=== PATIENT | male | born 1985 | race Two or more races ===

== ENCOUNTER 2018-10-22 16:36 | Inpatient (IN) | payer SELFPAY ==
[~2018-10-22] VITALS: Ht 175.3 cm; Wt 72.1 kg
--- NOTE | 2018-10-22 16:58 | PHYS DOC ---
Adult General Chief Complaint Chief Complaint: ABDOMINAL PAIN HPI HPI Patient is a 33 year old [male] who presents with [upper abdominal pain. Patient reports he has a history of pancreatitis, last episode was approximately one year ago. Reports he had changed his lifestyle following that decreased his alcohol and does watch his dietary intake. Reports over the past couple days he has eaten more spicy foods. Does report he's had a few alcoholic beverages over the past couple days. He has drank 3 non-alcoholic beer today. Approximately 1 hour prior to coming in he had increase in abdominal discomfort. Denies any n ausea or vomiting at this time. Reports bowel movements have been normal. Denies constipation or diarrhea. Reports he has not taken any medication for this. ] (JOSE L GARCIA APRN) Review of Systems Review of Systems Constitutional: Denies fever or chills [] Eyes: Denies change in visual acuity, redness, or eye pain [] HENT: Denies nasal congestion or sore throat [] Respiratory: Denies cough or shortness of breath [] Cardiovascular: No additional information not addressed in HPI [] GI: Reports upper left and epigastric abdominal pain, denies nausea, vomiting, bloody stools or diarrhea [] : Denies dysuria or hematuria [] Musculoskeletal: Denies back pain or joint pain [] Integument: Denies rash or skin lesions [] Neurologic: Denies headache, focal weakness or sensory changes [] Endocrine: Denies polyuria or polydipsia [] All other systems were reviewed and found to be within normal limits, except as documented in this note. (JOSE L GARCIA APRN) Current Medications Current Medications Current Medications Medications (Trade) Dose Ordered Sig/Avery Start Time Stop Time Status Last Admin Dose Admin Morphine Sulfate (Morphine Sulfate) 4 mg PRN Q30MIN PRN 10/22/18 18:30 10/22/18 18:50 DC Multi-Ingredient Mouthwash/Gargle (Gi Cocktail) 20 ml 1X ONCE 10/22/18 17:45 10/22/18 17:46 DC 10/22/18 17:36 20 ML Ondansetron HCl (Zofran) 4 mg 1X ONCE 10/22/18 17:15 10/22/18 17:16 DC 10/22/18 17:03 4 MG Sodium Chloride 1,000 ml @ 1,000 mls/hr 1X ONCE 10/22/18 17:00 10/22/18 17:59 DC 10/22/18 17:02 1,000 MLS/HR (NANDA PINEDA DO) Allergies Allergies Allergies Coded Allergies Type Severity Reaction Last Updated Verified Penicillins Allergy Intermediate 10/22/18 Yes (NANDA PINEDA DO) Physical Exam Physical Exam Constitutional: Well developed, well nourished, no acute distress, non-toxic appearance. [] HENT: Normocephalic, atraumatic, bilateral external ears normal, oropharynx moist, no oral exudates, nose normal. [] Eyes: PERRLA, EOMI, conjunctiva normal, no discharge. [] Neck: Normal range of motion, no tenderness, supple, no stridor. [] Cardiovascular:Heart rate regular rhythm, no murmur [] Lungs & Thorax: Bilateral breath sounds clear to auscultation [] Abdomen: Bowel sounds normal, soft, mild tenderness widespread upper abdominal., no masses, no pulsatile masses. [] Skin: Warm, dry, no erythema, no rash. [] Back: No tenderness, no CVA tenderness. [] Extremities: No tenderness, no cyanosis, no clubbing, ROM intact, no edema. [] Neurologic: Alert and oriented X 3, normal motor function, normal sensory function, no focal deficits noted. [] Psychologic: Affect normal, judgement normal, mood normal. [] (JOSE L GARCIA APRN) Current Patient Data Vital Signs Vital Signs Date Time Temp Pulse Resp B/P (MAP) Pulse Ox O2 Delivery O2 Flow Rate FiO2 10/22/18 18:14 86 154/99 (117) 98 Room Air 10/22/18 17:33 22 10/22/18 16:40 99.3 99.3 (NANDA PINEDA DO) Lab Values Laboratory Tests Test 10/22/18 16:45 10/22/18 17:15 White Blood Count 9.9 x10^3/uL (4.0-11.0) Red Blood Count 4.72 x10^6/uL (4.30-5.70) Hemoglobin 14.7 g/dL (13.0-17.5) Hematocrit 42.8 % (39.0-53.0) Mean Corpuscular Volume 91 fL (79-100) Mean Corpuscular Hemoglobin 31 pg (25-35) Mean Corpuscular Hemoglobin Concent 34 g/dL (31-37) Red Cell Distribution Width 16.1 % (11.5-14.5) H Platelet Count 292 x10^3/uL (140-400) Neutrophils (%) (Auto) 40 % (31-73) Lymphocytes (%) (Auto) 42 % (24-48) Monocytes (%) (Auto) 16 % (0-9) H Eosinophils (%) (Auto) 1 % (0-3) Basophils (%) (Auto) 1 % (0-3) Neutrophils # (Auto) 3.9 x10^3uL (1.8-7.7) Lymphocytes # (Auto) 4.2 x10^3/uL (1.0-4.8) Monocytes # (Auto) 1.6 x10^3/uL (0.0-1.1) H Eosinophils # (Auto) 0.1 x10^3/uL (0.0-0.7) Basophils # (Auto) 0.0 x10^3/uL (0.0-0.2) Sodium Level 142 mmol/L (136-145) Potassium Level 3.2 mmol/L (3.5-5.1) L Chloride Level 104 mmol/L (98-107) Carbon Dioxide Level 24 mmol/L (21-32) Anion Gap 14 (6-14) Blood Urea Nitrogen 14 mg/dL (8-26) Creatinine 1.2 mg/dL (0.7-1.3) Estimated GFR (Cockcroft-Gault) 68.9 BUN/Creatinine Ratio 12 (6-20) Glucose Level 124 mg/dL (70-99) H Lactic Acid Level 2.0 mmol/L (0.4-2.0) Calcium Level 9.8 mg/dL (8.5-10.1) Total Bilirubin 1.2 mg/dL (0.2-1.0) H Aspartate Amino Transferase (AST) 31 U/L (15-37) Alanine Aminotransferase (ALT) 49 U/L (16-63) Alkaline Phosphatase 56 U/L (46-116) Troponin I Quantitative < 0.017 ng/mL (0.000-0.055) Total Protein 8.3 g/dL (6.4-8.2) H Albumin 4.8 g/dL (3.4-5.0) Albumin/Globulin Ratio 1.4 (1.0-1.7) Amylase Level 3888 U/L (25-115) H Lipase 59951 U/L (73-393) H Ethyl Alcohol Level < 10 mg/dL (0-10) Urine Collection Type Unknown Urine Color Yellow Urine Clarity Cloudy Urine pH 5.5 Urine Specific [place] 1.015 Urine Protein Negative mg/dL (NEG-TRACE) Urine Glucose (UA) Negative mg/dL (NEG) Urine Ketones (Stick) Negative mg/dL (NEG) Urine Blood Negative (NEG) Urine Nitrite Negative (NEG) Urine Bilirubin Negative (NEG) Urine Urobilinogen Dipstick 0.2 mg/dL (0.2 mg/dL) Urine Leukocyte Esterase Trace (NEG) Urine RBC 0 /HPF (0-2) Urine WBC 5-10 /HPF (0-4) Urine Squamous Epithelial Cells Mod /LPF Urine Bacteria 0 /HPF (0-FEW) Urine Mucus Mod /LPF Laboratory Tests 10/22/18 16:45 Laboratory Tests 10/22/18 16:45 (NANDA PINEDA DO) Lab Values Laboratory Tests Test 10/22/18 16:45 10/22/18 17:15 White Blood Count 9.9 x10^3/uL (4.0-11.0) Red Blood Count 4.72 x10^6/uL (4.30-5.70) Hemoglobin 14.7 g/dL (13.0-17.5) Hematocrit 42.8 % (39.0-53.0) Mean Corpuscular Volume 91 fL (79-100) Mean Corpuscular Hemoglobin 31 pg (25-35) Mean Corpuscular Hemoglobin Concent 34 g/dL (31-37) Red Cell Distribution Width 16.1 % (11.5-14.5) H Platelet Count 292 x10^3/uL (140-400) Neutrophils (%) (Auto) 40 % (31-73) Lymphocytes (%) (Auto) 42 % (24-48) Monocytes (%) (Auto) 16 % (0-9) H Eosinophils (%) (Auto) 1 % (0-3) Basophils (%) (Auto) 1 % (0-3) Neutrophils # (Auto) 3.9 x10^3uL (1.8-7.7) Lymphocytes # (Auto) 4.2 x10^3/uL (1.0-4.8) Monocytes # (Auto) 1.6 x10^3/uL (0.0-1.1) H Eosinophils # (Auto) 0.1 x10^3/uL (0.0-0.7) Basophils # (Auto) 0.0 x10^3/uL (0.0-0.2) Sodium Level 142 mmol/L (136-145) Potassium Level 3.2 mmol/L (3.5-5.1) L Chloride Level 104 mmol/L (98-107) Carbon Dioxide Level 24 mmol/L (21-32) Anion Gap 14 (6-14) Blood Urea Nitrogen 14 mg/dL (8-26) Creatinine 1.2 mg/dL (0.7-1.3) Estimated GFR (Cockcroft-Gault) 68.9 BUN/Creatinine Ratio 12 (6-20) Glucose Level 124 mg/dL (70-99) H Lactic Acid Level 2.0 mmol/L (0.4-2.0) Calcium Level 9.8 mg/dL (8.5-10.1) Total Bilirubin 1.2 mg/dL (0.2-1.0) H Aspartate Amino Transferase (AST) 31 U/L (15-37) Alanine Aminotransferase (ALT) 49 U/L (16-63) Alkaline Phosphatase 56 U/L (46-116) Troponin I Quantitative < 0.017 ng/mL (0.000-0.055) Total Protein 8.3 g/dL (6.4-8.2) H Albumin 4.8 g/dL (3.4-5.0) Albumin/Globulin Ratio 1.4 (1.0-1.7) Amylase Level 3888 U/L (25-115) H Lipase 70032 U/L (73-393) H Ethyl Alcohol Level < 10 mg/dL (0-10) Urine Collection Type Unknown Urine Color Yellow Urine Clarity Cloudy Urine pH 5.5 Urine Specific [place] 1.015 Urine Protein Negative mg/dL (NEG-TRACE) Urine Glucose (UA) Negative mg/dL (NEG) Urine Ketones (Stick) Negative mg/dL (NEG) Urine Blood Negative (NEG) Urine Nitrite Negative (NEG) Urine Bilirubin Negative (NEG) Urine Urobilinogen Dipstick 0.2 mg/dL (0.2 mg/dL) Urine Leukocyte Esterase Trace (NEG) Urine RBC 0 /HPF (0-2) Urine WBC 5-10 /HPF (0-4) Urine Squamous Epithelial Cells Mod /LPF Urine Bacteria 0 /HPF (0-FEW) Urine Mucus Mod /LPF Laboratory Tests 10/22/18 16:45 Laboratory Tests 10/22/18 16:45 (JOSE L GARCIA APRN) EKG EKG @1652, Dr Friend evaluates. normal sinus rhythm without ST changes or ectopy noted. HR 67. [] (JOSE L GARCIA APRN) Radiology/Procedures Radiology/Procedures [] (JOSE L GARCIA APRN) Course & Med Decision Making Course & Med Decision Making Pertinent Labs and Imaging studies reviewed. (See chart for details) [Discussed pain control and left findings with patient. Patient reports he continues to have some discomfort. We'll admit, additional morphine here at this time and potassium for symptoms for k+ 3.2. Discussed admission with the patient, patient reports he would like that for pain control and follow up. @[address] Byers, Agrees to admission inpatient for acute pancreatitis. ] (JOSE L GARCIA APRN) Dragon Disclaimer Dragon Disclaimer This electronic medical record was generated, in whole or in part, using a voice recognition dictation system. (JOSE L GARCIA APRN) Departure Departure Impression: Primary Impression: Pancreatitis Additional Impression: Hypokalemia Disposition: ADMITTED INPATIENT Admitting Physician: Other (JOSE L GARCIA APRN) Condition: STABLE Referrals: NO PCP (PCP) Attending Signature Attending Signature I have reviewed the PA/NEWS PRODUCER's note and plan of care. I was available for consultation as needed during the patient's visit in the emergency department. I agree with the clinical impression, plan, and disposition. (NANDA PINEDA DO) Problem Qualifiers JOSE L GARCIA APRN October 22, 2018 16:58 NANDA PINEDA DO October 23, 2018 03:17
[2018-10-22] MEDS ORDERED: IV NORMAL SALINE 1000ML BAG 1,000 ML IV ONE ×2 (17:00→19:00)
[2018-10-22 17:02] LABS: BASO % 1 % (0-3); EOS # 0.1 x10^3/uL (0.0-0.7); EOS % 1 % (0-3); HEMATOCRIT 42.8 % (39.0-53.0); HEMOGLOBIN 14.7 g/dL (13.0-17.5); LYMPH # 4.2 x10^3/uL (1.0-4.8); LYMPH % 42 % (24-48); MEAN CORPUSCULAR HEMOGLOBIN 31 pg (25-35); MEAN CORPUSCULAR HGB CONC 34 g/dL (31-37); MEAN CORPUSCULAR VOLUME 91 fL (79-100); MONO # 1.6 x10^3/uL (0.0-1.1); MONO % 16 % (0-9); NEUT # 3.9 x10^3uL (1.8-7.7); NEUT % 40 % (31-73); PLATELET COUNT 292 x10^3/uL (140-400); RED BLOOD COUNT 4.72 x10^6/uL (4.30-5.70); RED CELL DISTRIBUTION WIDTH 16.1 % (11.5-14.5); WHITE BLOOD COUNT 9.9 x10^3/uL (4.0-11.0)
[2018-10-22 17:10] LABS: CALCIUM 9.8 mg/dL (8.5-10.1); CREATININE 1.2 mg/dL (0.7-1.3); GFR 68.9; POTASSIUM 3.2 mmol/L (3.5-5.1)
[2018-10-22] MEDS ORDERED: ONDANSETRON PF 4 MG/2 ML VIAL. IV ONE (17:15)
[2018-10-22] MEDS ORDERED: MORPHINE SULFATE 4 MG/ML VIAL. IV ONE (17:15)
[2018-10-22 17:23] LABS: ALBUMIN 4.8 g/dL (3.4-5.0); ALBUMIN/GLOBULIN RATIO 1.4 (1.0-1.7); TOTAL BILIRUBIN 1.2 mg/dL (0.2-1.0); TOTAL PROTEIN 8.3 g/dL (6.4-8.2)
[2018-10-22 17:28] LABS: BILIRUBIN,URINE NEGATIVE (NEG); CLARITY,URINE CLOUDY; COLOR,URINE YELLOW; NITRITE,URINE NEGATIVE (NEG); PH,URINE 5.5; PROTEIN,URINE NEGATIVE (NEG-TRACE); UROBILINOGEN,URINE 0.2 mg/dL (0.2 mg/dL)
[2018-10-22 17:35] LABS: BACTERIA,URINE 0 /HPF (0-FEW); RBC,URINE 0 /HPF (0-2); SQUAMOUS EPITHELIAL CELL,UR MOD /LPF
[2018-10-22] MEDS ORDERED: LIDO:MAALOX 1:1 20 ML SINGLE DOSE. SWSW ONE (17:45)
[2018-10-22] MEDS ORDERED: MORPHINE SULFATE 4 MG/ML VIAL. IV PRN ×2 (18:30→18:45)
[2018-10-22] MEDS ORDERED: POTASSIUM CHLORIDE 20 MEQ TABLET.ER. PO ONE (18:45)
[2018-10-22] MEDS ORDERED: ONDANSETRON PF 4 MG/2 ML VIAL. IV PRN ×2 (18:45→20:00)
[2018-10-22 19:00] VITALS: BP 158/95
--- NOTE | 2018-10-22 19:36 | NUR ---
Pt.just arrived from ED via bed w/ Pancreatitis. He is A/O and will make needs known. Family @ BS
[2018-10-22] MEDS ORDERED: BISACODYL 10 MG SUPP.RECT. PR PRN (20:00)
[2018-10-22] MEDS ORDERED: PROCHLORPERAZINE 10 MG/2 ML VIAL. IV PRN (20:00)
[2018-10-22] MEDS: MULTIVIT INFUSN,ADULT 4,VIT K 10 ML, THIAMINE INJ 100 MG, FOLIC ACID INJ 1 MG in IV NOR... IV SCH (20:44)
[2018-10-22] MEDS: MORPHINE SULFATE 2 MG/ML VIAL. IV PRN ×2 (20:44→22:06)
[2018-10-22] MEDS: POTASSIUM CL 20MEQ D5-0.45NACL 1,000 ML IV SCH (20:45)
--- NOTE | 2018-10-22 20:58 | NUR ---
NS @ 125 not given b/c he has 1/2 NS + KCl and a banana bag running
[2018-10-22 23:00] VITALS: BP 144/85
[2018-10-22] MEDS ORDERED: no home meds (23:19)
[2018-10-23] MEDS: MORPHINE SULFATE 2 MG/ML VIAL. IV PRN ×3 (02:51→08:14)
[2018-10-23 03:03] VITALS: BP 148/86
[2018-10-23 04:14] LABS: BASO % 0 % (0-3); EOS % 0 % (0-3); HEMATOCRIT 39.9 % (39.0-53.0); HEMOGLOBIN 13.7 g/dL (13.0-17.5); LYMPH # 0.4 x10^3/uL (1.0-4.8); LYMPH % 5 % (24-48); MEAN CORPUSCULAR HEMOGLOBIN 31 pg (25-35); MEAN CORPUSCULAR HGB CONC 34 g/dL (31-37); MEAN CORPUSCULAR VOLUME 90 fL (79-100); MONO # 0.9 x10^3/uL (0.0-1.1); MONO % 10 % (0-9); NEUT # 7.5 x10^3uL (1.8-7.7); NEUT % 85 % (31-73); PLATELET COUNT 226 x10^3/uL (140-400); RED BLOOD COUNT 4.42 x10^6/uL (4.30-5.70); RED CELL DISTRIBUTION WIDTH 15.9 % (11.5-14.5); WHITE BLOOD COUNT 8.9 x10^3/uL (4.0-11.0)
[2018-10-23 04:46] LABS: ALBUMIN/GLOBULIN RATIO 1.3 (1.0-1.7); CALCIUM 8.8 mg/dL (8.5-10.1); CREATININE 0.9 mg/dL (0.7-1.3); POTASSIUM 3.7 mmol/L (3.5-5.1)
--- NOTE | 2018-10-23 06:24 | EKG ---
[facility] [address] [place] [address] Test Date: 2018-10-22 Test Time: 16:50:02 Pat Name: STAR GARSIA Department: Room: Gender: M Window Repairer: : [id number] Requested By: JOSE L GARCIA Order Number: [id number] Reading MD: Measurements Intervals [place] Rate: 67 P: 45 RI: 154 QRS: 39 QRSD: 84 T: 39 QT: 366 QTc: 389 Interpretive Statements SINUS RHYTHM OTHERWISE NORMAL ECG RI6.01 Unconfirmed report No previous ECG available for comparison
[2018-10-23 07:00] VITALS: BP 140/85
[2018-10-23] MEDS: POTASSIUM CL 20MEQ D5-0.45NACL 1,000 ML IV SCH ×2 (07:00→17:19)
--- NOTE | 2018-10-23 07:48 | RAD ---
Right upper quadrant abdominal ultrasound, 10/23/2018: HISTORY: Right upper quadrant pain, elevated lipase and amylase levels, pancreatitis The gallbladder is within normal limits in size. There is no sonographic evidence of cholelithiasis. The gallbladder talbert are not thickened. The common hepatic duct is of normal caliber. There is no evidence of a hepatic mass or bile duct dilatation. The hepatic echogenicity appears mildly increased, most commonly due to fatty change. The visualized portions of the right kidney are unremarkable. Only a portion of the pancreatic body was visible and it appears to be slightly thickened. The remainder of the pancreas was obscured by overlying bowel. A trace amount of ascites is noted in the abdomen. IMPRESSION: 1. Trace amount of ascites in the abdomen. 2. Poor visualization of the pancreas, although the pancreatic body appears to be slightly thickened. CT scanning is suggested for further evaluation, if clinically indicated. 3. Possible hepatic steatosis. Electronically signed by: Salbador Mccoy MD (10/23/2018 7:45 AM) [facility]
[2018-10-23] MEDS: MULTIVIT INFUSN,ADULT 4,VIT K 10 ML, THIAMINE INJ 100 MG, FOLIC ACID INJ 1 MG in IV NOR... IV SCH (08:14)
--- NOTE | 2018-10-23 09:17 | PDOC1 ---
History and Physical Date of Admission Date of Admission DATE: 10/23/18 TIME: 09:13 Identification/Chief Complaint Chief Complaint abd pain Source Source: Caregiver, Chart review, Patient History of Present Illness History of Present Illness 33-year-old male who can speak and understand Setswana, drinks 12 beers every day, comes in because of NOT the first time of acute pancreatitis with a lipase of 60,000. Potassium better after hypokalemia replacement. Positive alcohol levels. CAT scan was unable to visualize the pancreas but they're able to appreciate fatty liver. He falls asleep as I explain his numbers. Some trace ascites on CAT scan but abdomen is not distended on physical exam. He's not the best historian but this is not his first time acute pancreatitis from alcoholism. I'm unsure if he has gone to [employer] like programs. We'll have social work give him some resources Past Medical History GI: Other (fatty liver, pancreatitis in the past) Past Surgical History Past Surgical History: No pertinent history Family History Family History: Family History Unknown Social History Smoke: No ALCOHOL: heavy Drugs: None Current Problem List Problem List Problems Medical Problems: (1) Hypokalemia Status: Acute (2) Pancreatitis Status: Acute Current Medications Current Medications Current Medications Morphine Sulfate (Morphine Sulfate) 4 mg 1X ONCE IV Last administered on 10/22/18at 17:03; Start 10/22/18 at 17:15; Stop 10/22/18 at 17:16; Status DC Sodium Chloride 1,000 ml @ 1,000 mls/hr 1X ONCE IV Last administered on 10/22/18at 17:02; Start 10/22/18 at 17:00; Stop 10/22/18 at 17:59; Status DC Ondansetron HCl (Zofran) 4 mg 1X ONCE IV Last administered on 10/22/18at 17:03; Start 10/22/18 at 17:15; Stop 10/22/18 at 17:16; Status DC Multi-Ingredient Mouthwash/Gargle (Gi Cocktail) 20 ml 1X ONCE SWSW Last administered on 10/22/18at 17:36; Start 10/22/18 at 17:45; Stop 10/22/18 at 17:4 6; Status DC Morphine Sulfate (Morphine Sulfate) 4 mg PRN Q30MIN PRN IV PAIN; Start 10/22/18 at 18:30; Stop 10/22/18 at 18:50; Status DC Potassium Chloride (Klor-Con) 20 meq 1X ONCE PO Last administered on 10/22/18at 18:46; Start 10/22/18 at 18:45; Stop 10/22/18 at 18:46; Status DC Ondansetron HCl (Zofran) 4 mg PRN Q8HRS PRN IV NAUSEA/VOMITING; Start 10/22/18 at 18:45; Stop 10/23/18 at 18:44 Morphine Sulfate (Morphine Sulfate) 4 mg PRN Q1HR PRN IV PAIN Last administered on 10/22/18at 19:01; Start 10/22/18 at 18:45; Stop 10/22/18 at 20:03; Status DC Sodium Chloride 1,000 ml @ 125 mls/hr 1X ONCE IV ; Start 10/22/18 at 19:00; Stop 10/23/18 at 02:59; Status DC Potassium Chloride/Dextrose/ Sod Cl 1,000 ml @ 100 mls/hr Q10H IV Last administered on 10/22/18at 20:45; Start 10/22/18 at 21:00 Ondansetron HCl (Zofran) 4 mg PRN Q6HRS PRN IV NAUSEA/VOMITING, 1st CHOICE; Start 10/22/18 at 20:00 Prochlorperazine Edisylate (Compazine) 10 mg PRN Q6HRS PRN IV NAUSEA/VOMITING, 2nd CHOICE Last administered on 10/22/18at 20:44; Start 10/22/18 at 20:00 Morphine Sulfate (Morphine Sulfate) 2 mg PRN Q4HRS PRN IV PAIN Last administered on 10/23/18at 08:14; Start 10/22/18 at 20:00 Bisacodyl (Dulcolax Supp) 10 mg PRN DAILY PRN [place] CONSTIPATION; Start 10/22/18 at 20:00 Multivitamins 10 ml/Thiamine HCl 100 mg/Folic Acid 1 mg/Sodium Chloride 1,011.2 ml @ 100 mls/ hr DAILY IV Last administered on 10/23/18at 08:14; Start 10/22/18 at 21:00; Stop 10/26/18 at 19:07 Lorazepam (Ativan Inj) 2 mg PRN Q1HR PRN IV For CIWA 8-14 Last administered on 10/23/18at 08:14; Start 10/22/18 at 20:00 Acetaminophen/ Hydrocodone Bitart (Lortab 5/325) 1 tab PRN Q4HRS PRN PO MOD ERATE PAIN; Start 10/23/18 at 08:30 Active Scripts Active Reported [no home meds] Allergies Allergies: Coded Allergies: Penicillins (Verified Allergy, Intermediate, 10/22/18) ROS Review of System pos for abdominal pain and nausea but no emesis, the rest of ROS he falls asle ep Physical Exam General: Cooperative, No acute distress, Other (sleepy from meds) HEENT: Atraumatic, PERRLA Lungs: Clear to auscultation, Normal air movement Heart: S1S2, RRR, no thrills, no rubs, no gallops, no murmurs Cardiovascular: S1, S2 Abdomen: Soft, Other (nondistended, normoactive bowel sounds, minimal tenderness on mild to moderate palpation) Male Genitals Exam: normal genitalia, normal prostate Rectal Exam: not examined Extremities: No clubbing Skin: No rashes, No breakdown, No significant lesion Neuro: Normal gait, Normal speech, Strength at 5/5 X4 ext, Normal tone, Sensation intact, Cranial nerves 3-12 NL, Reflexes 2+ Psych/Mental Status: Mental status NL, Mood NL Vitals Vitals Vital Signs Date Time Temp Pulse Resp B/P (MAP) Pulse Ox O2 Delivery O2 Flow Rate FiO2 10/23/18 08:48 Room Air 10/23/18 07:00 98.6 79 18 140/85 (103) 100 98.6 Labs Labs Laboratory Tests Test 10/22/18 16:45 10/22/18 17:15 10/23/18 03:15 White Blood Count 9.9 x10^3/uL (4.0-11.0) 8.9 x10^3/uL (4.0-11.0) Red Blood Count 4.72 x10^6/uL (4.30-5.70) 4.42 x10^6/uL (4.30-5.70) Hemoglobin 14.7 g/dL (13.0-17.5) 13.7 g/dL (13.0-17.5) Hematocrit 42.8 % (39.0-53.0) 39.9 % (39.0-53.0) Mean Corpuscular Volume 91 fL (79-100) 90 fL (79-100) Mean Corpuscular Hemoglobin 31 pg (25-35) 31 pg (25-35) Mean Corpuscular Hemoglobin Concent 34 g/dL (31-37) 34 g/dL (31-37) Red Cell Distribution Width 16.1 % (11.5-14.5) 15.9 % (11.5-14.5) Platelet Count 292 x10^3/uL (140-400) 226 x10^3/uL (140-400) Neutrophils (%) (Auto) 40 % (31-73) 85 % (31-73) Lymphocytes (%) (Auto) 42 % (24-48) 5 % (24-48) Monocytes (%) (Auto) 16 % (0-9) 10 % (0-9) Eosinophils (%) (Auto) 1 % (0-3) 0 % (0-3) Basophils (%) (Auto) 1 % (0-3) 0 % (0-3) Neutrophils # (Auto) 3.9 x10^3uL (1.8-7.7) 7.5 x10^3uL (1.8-7.7) Lymphocytes # (Auto) 4.2 x10^3/uL (1.0-4.8) 0.4 x10^3/uL (1.0-4.8) Monocytes # (Auto) 1.6 x10^3/uL (0.0-1.1) 0.9 x10^3/uL (0.0-1.1) Eosinophils # (Auto) 0.1 x10^3/uL (0.0-0.7) 0.0 x10^3/uL (0.0-0.7) Basophils # (Auto) 0.0 x10^3/uL (0.0-0.2) 0.0 x10^3/uL (0.0-0.2) Sodium Level 142 mmol/L (136-145) 139 mmol/L (136-145) Potassium Level 3.2 mmol/L (3.5-5.1) 3.7 mmol/L (3.5-5.1) Chloride Level 104 mmol/L (98-107) 103 mmol/L (98-107) Carbon Dioxide Level 24 mmol/L (21-32) 23 mmol/L (21-32) Anion Gap 14 (6-14) 13 (6-14) Blood Urea Nitrogen 14 mg/dL (8-26) 9 mg/dL (8-26) Creatinine 1.2 mg/dL (0.7-1.3) 0.9 mg/dL (0.7-1.3) Estimated GFR (Cockcroft-Gault) 68.9 96.0 BUN/Creatinine Ratio 12 (6-20) 10 (6-20) Glucose Level 124 mg/dL (70-99) 178 mg/dL (70-99) Lactic Acid Level 2.0 mmol/L (0.4-2.0) Calcium Level 9.8 mg/dL (8.5-10.1) 8.8 mg/dL (8.5-10.1) Total Bilirubin 1.2 mg/dL (0.2-1.0) 1.0 mg/dL (0.2-1.0) Aspartate Amino Transf (AST/SGOT) 31 U/L (15-37) 23 U/L (15-37) Alanine Aminotransferase (ALT/SGPT) 49 U/L (16-63) 37 U/L (16-63) Alkaline Phosphatase 56 U/L (46-116) 45 U/L (46-116) Troponin I Quantitative < 0.017 ng/mL (0.000-0.055) Total Protein 8.3 g/dL (6.4-8.2) 7.0 g/dL (6.4-8.2) Albumin 4.8 g/dL (3.4-5.0) 4.0 g/dL (3.4-5.0) Albumin/Globulin Ratio 1.4 (1.0-1.7) 1.3 (1.0-1.7) Amylase Level 3888 U/L (25-115) Lipase 40344 U/L (73-393) Ethyl Alcohol Level < 10 mg/dL (0-10) Urine Collection Type Unknown Urine Color Yellow Urine Clarity Cloudy Urine pH 5.5 Urine Specific [place] 1.015 Urine Protein Negative mg/dL (NEG-TRACE) Urine Glucose (UA) Negative mg/dL (NEG) Urine Ketones (Stick) Negative mg/dL (NEG) Urine Blood Negative (NEG) Urine Nitrite Negative (NEG) Urine Bilirubin Negative (NEG) Urine Urobilinogen Dipstick 0.2 mg/dL (0.2 mg/dL) Urine Leukocyte Esterase Trace (NEG) Urine RBC 0 /HPF (0-2) Urine WBC 5-10 /HPF (0-4) Urine Squamous Epithelial Cells Mod /LPF Urine Bacteria 0 /HPF (0-FEW) Urine Mucus Mod /LPF Phosphorus Level 3.0 mg/dL (2.6-4.7) Laboratory Tests Test 10/22/18 16:45 10/22/18 17:15 10/23/18 03:15 White Blood Count 9.9 x10^3/uL (4.0-11.0) 8.9 x10^3/uL (4.0-11.0) Red Blood Count 4.72 x10^6/uL (4.30-5.70) 4.42 x10^6/uL (4.30-5.70) Hemoglobin 14.7 g/dL (13.0-17.5) 13.7 g/dL (13.0-17.5) Hematocrit 42.8 % (39.0-53.0) 39.9 % (39.0-53.0) Mean Corpuscular Volume 91 fL (79-100) 90 fL (79-100) Mean Corpuscular Hemoglobin 31 pg (25-35) 31 pg (25-35) Mean Corpuscular Hemoglobin Concent 34 g/dL (31-37) 34 g/dL (31-37) Red Cell Distribution Width 16.1 % (11.5-14.5) 15.9 % (11.5-14.5) Platelet Count 292 x10^3/uL (140-400) 226 x10^3/uL (140-400) Neutrophils (%) (Auto) 40 % (31-73) 85 % (31-73) Lymphocytes (%) (Auto) 42 % (24-48) 5 % (24-48) Monocytes (%) (Auto) 16 % (0-9) 10 % (0-9) Eosinophils (%) (Auto) 1 % (0-3) 0 % (0-3) Basophils (%) (Auto) 1 % (0-3) 0 % (0-3) Neutrophils # (Auto) 3.9 x10^3uL (1.8-7.7) 7.5 x10^3uL (1.8-7.7) Lymphocytes # (Auto) 4.2 x10^3/uL (1.0-4.8) 0.4 x10^3/uL (1.0-4.8) Monocytes # (Auto) 1.6 x10^3/uL (0.0-1.1) 0.9 x10^3/uL (0.0-1.1) Eosinophils # (Auto) 0.1 x10^3/uL (0.0-0.7) 0.0 x10^3/uL (0.0-0.7) Basophils # (Auto) 0.0 x10^3/uL (0.0-0.2) 0.0 x10^3/uL (0.0-0.2) Sodium Level 142 mmol/L (136-145) 139 mmol/L (136-145) Potassium Level 3.2 mmol/L (3.5-5.1) 3.7 mmol/L (3.5-5.1) Chloride Level 104 mmol/L (98-107) 103 mmol/L (98-107) Carbon Dioxide Level 24 mmol/L (21-32) 23 mmol/L (21-32) Anion Gap 14 (6-14) 13 (6-14) Blood Urea Nitrogen 14 mg/dL (8-26) 9 mg/dL (8-26) Creatinine 1.2 mg/dL (0.7-1.3) 0.9 mg/dL (0.7-1.3) Estimated GFR (Cockcroft-Gault) 68.9 96.0 BUN/Creatinine Ratio 12 (6-20) 10 (6-20) Glucose Level 124 mg/dL (70-99) 178 mg/dL (70-99) Lactic Acid Level 2.0 mmol/L (0.4-2.0) Calcium Level 9.8 mg/dL (8.5-10.1) 8.8 mg/dL (8.5-10.1) Total Bilirubin 1.2 mg/dL (0.2-1.0) 1.0 mg/dL (0.2-1.0) Aspartate Amino Transf (AST/SGOT) 31 U/L (15-37) 23 U/L (15-37) Alanine Aminotransferase (ALT/SGPT) 49 U/L (16-63) 37 U/L (16-63) Alkaline Phosphatase 56 U/L (46-116) 45 U/L (46-116) Troponin I Quantitative < 0.017 ng/mL (0.000-0.055) Total Protein 8.3 g/dL (6.4-8.2) 7.0 g/dL (6.4-8.2) Albumin 4.8 g/dL (3.4-5.0) 4.0 g/dL (3.4-5.0) Albumin/Globulin Ratio 1.4 (1.0-1.7) 1.3 (1.0-1.7) Amylase Level 3888 U/L (25-115) Lipase 84054 U/L (73-393) Ethyl Alcohol Level < 10 mg/dL (0-10) Urine Collection Type Unknown Urine Color Yellow Urine Clarity Cloudy Urine pH 5.5 Urine Specific [place] 1.015 Urine Protein Negative mg/dL (NEG-TRACE) Urine Glucose (UA) Negative mg/dL (NEG) Urine Ketones (Stick) Negative mg/dL (NEG) Urine Blood Negative (NEG) Urine Nitrite Negative (NEG) Urine Bilirubin Negative (NEG) Urine Urobilinogen Dipstick 0.2 mg/dL (0.2 mg/dL) Urine Leukocyte Esterase Trace (NEG) Urine RBC 0 /HPF (0-2) Urine WBC 5-10 /HPF (0-4) Urine Squamous Epithelial Cells Mod /LPF Urine Bacteria 0 /HPF (0-FEW) Urine Mucus Mod /LPF Phosphorus Level 3.0 mg/dL (2.6-4.7) VTE Prophylaxis Ordered VTE Prophylaxis Devices: Yes VTE Pharmacological Prophylaxi: Yes Assessment/Plan Assessment/Plan Acute Alcoholic pancreatitis -lipase 60,000 on admission Mild hypokalemia replaced FAtty liver Alcoholism Possible depression causing alcoholism SIRS with no organ dysfunction nonseptic AK I VMN Plan: Nothing by mouth for now because of the really elevated lipase IV fluids CIWA protocol etoh cessation Social work for AA referral no home meds to reconcile QUANG STEVEN MD October 23, 2018 09:17
[2018-10-23 11:00] VITALS: BP 126/73
[2018-10-23] MEDS: HYDROcodone/APAP 5/325MG 1 TAB TABLET PO PRN ×2 (14:21→21:20)
[2018-10-23 15:00] VITALS: BP 149/85
[2018-10-23 19:00] VITALS: BP 138/78
[2018-10-23 23:00] VITALS: BP 134/80
[2018-10-24] MEDS: HYDROcodone/APAP 5/325MG 1 TAB TABLET PO PRN ×3 (02:56→19:29)
[2018-10-24] MEDS: POTASSIUM CL 20MEQ D5-0.45NACL 1,000 ML IV SCH ×2 (02:59→12:45)
[2018-10-24 03:00] VITALS: BP 140/77
[2018-10-24 07:00] VITALS: BP 130/74
[2018-10-24 08:20] LABS: CALCIUM 8.8 mg/dL (8.5-10.1); CREATININE 0.9 mg/dL (0.7-1.3); POTASSIUM 3.7 mmol/L (3.5-5.1)
[2018-10-24] MEDS: MULTIVIT INFUSN,ADULT 4,VIT K 10 ML, THIAMINE INJ 100 MG, FOLIC ACID INJ 1 MG in IV NOR... IV SCH (09:31)
[2018-10-24 11:00] VITALS: BP 145/83
--- NOTE | 2018-10-24 14:07 | PDOC ---
PROGRESS NOTES Chief Complaint Chief Complaint Acute pancreatitis Alcohol abuse Abdominal pain secondary to the above Plan: Continue IV fluid resuscitation Monitor for withdrawal symptoms Keep nothing by mouth given the abdominal discomfort that the patient is still experiencing Reassess in the a.m. Further limitations based on the clinical course Reassurance has been provided Vitals Vitals Vital Signs Date Time Temp Pulse Resp B/P (MAP) Pulse Ox O2 Delivery O2 Flow Rate FiO2 10/24/18 12:10 20 93 Room Air 10/24/18 11:00 100.8 102 145/83 (103) 100.8 Physical Exam General: Cooperative, No acute distress, Other (sleepy from meds) Abdomen: Soft, Other (nondistended, normoactive bowel sounds, minimal tendern ess on mild to moderate palpation) Extremities: No clubbing Skin: No rashes, No breakdown, No significant lesion Labs LABS Laboratory Tests Test 10/24/18 07:27 Sodium Level 138 mmol/L (136-145) Potassium Level 3.7 mmol/L (3.5-5.1) Chloride Level 102 mmol/L (98-107) Carbon Dioxide Level 25 mmol/L (21-32) Anion Gap 11 (6-14) Blood Urea Nitrogen 5 mg/dL (8-26) Creatinine 0.9 mg/dL (0.7-1.3) Estimated GFR (Cockcroft-Gault) 96.0 Glucose Level 99 mg/dL (70-99) Calcium Level 8.8 mg/dL (8.5-10.1) Lipase 1305 U/L (73-393) Assessment and Plan Assessmemt and Plan Problems Medical Problems: (1) Hypokalemia Status: Acute (2) Pancreatitis Status: Acute Comment Review of Relevant I have reviewed the following items patrick (where applicable) has been applied. Labs Laboratory Tests Test 10/22/18 16:45 10/22/18 17:15 10/23/18 03:15 10/24/18 07:27 White Blood Count 9.9 x10^3/uL (4.0-11.0) 8.9 x10^3/uL (4.0-11.0) Red Blood Count 4.72 x10^6/uL (4.30-5.70) 4.42 x10^6/uL (4.30-5.70) Hemoglobin 14.7 g/dL (13.0-17.5) 13.7 g/dL (13.0-17.5) Hematocrit 42.8 % (39.0-53.0) 39.9 % (39.0-53.0) Mean Corpuscular Volume 91 fL (79-100) 90 fL (79-100) Mean Corpuscular Hemoglobin 31 pg (25-35) 31 pg (25-35) Mean Corpuscular Hemoglobin Concent 34 g/dL (31-37) 34 g/dL (31-37) Red Cell Distribution Width 16.1 % (11.5-14.5) 15.9 % (11.5-14.5) Platelet Count 292 x10^3/uL (140-400) 226 x10^3/uL (140-400) Neutrophils (%) (Auto) 40 % (31-73) 85 % (31-73) Lymphocytes (%) (Auto) 42 % (24-48) 5 % (24-48) Monocytes (%) (Auto) 16 % (0-9) 10 % (0-9) Eosinophils (%) (Auto) 1 % (0-3) 0 % (0-3) Basophils (%) (Auto) 1 % (0-3) 0 % (0-3) Neutrophils # (Auto) 3.9 x10^3uL (1.8-7.7) 7.5 x10^3uL (1.8-7.7) Lymphocytes # (Auto) 4.2 x10^3/uL (1.0-4.8) 0.4 x10^3/uL (1.0-4.8) Monocytes # (Auto) 1.6 x10^3/uL (0.0-1.1) 0.9 x10^3/uL (0.0-1.1) Eosinophils # (Auto) 0.1 x10^3/uL (0.0-0.7) 0.0 x10^3/uL (0.0-0.7) Basophils # (Auto) 0.0 x10^3/uL (0.0-0.2) 0.0 x10^3/uL (0.0-0.2) Sodium Level 142 mmol/L (136-145) 139 mmol/L (136-145) 138 mmol/L (136-145) Potassium Level 3.2 mmol/L (3.5-5.1) 3.7 mmol/L (3.5-5.1) 3.7 mmol/L (3.5-5.1) Chloride Level 104 mmol/L (98-107) 103 mmol/L (98-107) 102 mmol/L (98-107) Carbon Dioxide Level 24 mmol/L (21-32) 23 mmol/L (21-32) 25 mmol/L (21-32) Anion Gap 14 (6-14) 13 (6-14) 11 (6-14) Blood Urea Nitrogen 14 mg/dL (8-26) 9 mg/dL (8-26) 5 mg/dL (8-26) Creatinine 1.2 mg/dL (0.7-1.3) 0.9 mg/dL (0.7-1.3) 0.9 mg/dL (0.7-1.3) Estimated GFR (Cockcroft-Gault) 68.9 96.0 96.0 BUN/Creatinine Ratio 12 (6-20) 10 (6-20) Glucose Level 124 mg/dL (70-99) 178 mg/dL (70-99) 99 mg/dL (70-99) Lactic Acid Level 2.0 mmol/L (0.4-2.0) Calcium Level 9.8 mg/dL (8.5-10.1) 8.8 mg/dL (8.5-10.1) 8.8 mg/dL (8.5-10.1) Total Bilirubin 1.2 mg/dL (0.2-1.0) 1.0 mg/dL (0.2-1.0) Aspartate Amino Transf (AST/SGOT) 31 U/L (15-37) 23 U/L (15-37) Alanine Aminotransferase (ALT/SGPT) 49 U/L (16-63) 37 U/L (16-63) Alkaline Phosphatase 56 U/L (46-116) 45 U/L (46-116) Troponin I Quantitative < 0.017 ng/mL (0.000-0.055) Total Protein 8.3 g/dL (6.4-8.2) 7.0 g/dL (6.4-8.2) Albumin 4.8 g/dL (3.4-5.0) 4.0 g/dL (3.4-5.0) Albumin/Globulin Ratio 1.4 (1.0-1.7) 1.3 (1.0-1.7) Amylase Level 3888 U/L (25-115) Lipase 00225 U/L (73-393) 1305 U/L (73-393) Ethyl Alcohol Level < 10 mg/dL (0-10) Urine Collection Type Unknown Urine Color Yellow Urine Clarity Cloudy Urine pH 5.5 Urine Specific Noble 1.015 Urine Protein Negative mg/dL (NEG-TRACE) Urine Glucose (UA) Negative mg/dL (NEG) Urine Ketones (Stick) Negative mg/dL (NEG) Urine Blood Negative (NEG) Urine Nitrite Negative (NEG) Urine Bilirubin Negative (NEG) Urine Urobilinogen Dipstick 0.2 mg/dL (0.2 mg/dL) Urine Leukocyte Esterase Trace (NEG) Urine RBC 0 /HPF (0-2) Urine WBC 5-10 /HPF (0-4) Urine Squamous Epithelial Cells Mod /LPF Urine Bacteria 0 /HPF (0-FEW) Urine Mucus Mod /LPF Phosphorus Level 3.0 mg/dL (2.6-4.7) Laboratory Tests Test 10/24/18 07:27 Sodium Level 138 mmol/L (136-145) Potassium Level 3.7 mmol/L (3.5-5.1) Chloride Level 102 mmol/L (98-107) Carbon Dioxide Level 25 mmol/L (21-32) Anion Gap 11 (6-14) Blood Urea Nitrogen 5 mg/dL (8-26) Creatinine 0.9 mg/dL (0.7-1.3) Estimated GFR (Cockcroft-Gault) 96.0 Glucose Level 99 mg/dL (70-99) Calcium Level 8.8 mg/dL (8.5-10.1) Lipase 1305 U/L (73-393) Medications Current Medications Morphine Sulfate (Morphine Sulfate) 4 mg 1X ONCE IV Last administered on 10/22/18at 17:03; Start 10/22/18 at 17:15; Stop 10/22/18 at 17:16; Status DC Sodium Chloride 1,000 ml @ 1,000 mls/hr 1X ONCE IV Last administered on 10/22/18at 17:02; Start 10/22/18 at 17:00; Stop 10/22/18 at 17:59; Status DC Ondansetron HCl (Zofran) 4 mg 1X ONCE IV Last administered on 10/22/18at 17:03; Start 10/22/18 at 17:15; Stop 10/22/18 at 17:16; Status DC Multi-Ingredient Mouthwash/Gargle (Gi Cocktail) 20 ml 1X ONCE SWSW Last administered on 10/22/18at 17:36; Start 10/22/18 at 17:45; Stop 10/22/18 at 17:46; Status DC Morphine Sulfate (Morphine Sulfate) 4 mg PRN Q30MIN PRN IV PAIN; Start 10/22/18 at 18:30; Stop 10/22/18 at 18:50; Status DC Potassium Chloride (Klor-Con) 20 meq 1X ONCE PO Last administered on 10/22/18at 18:46; Start 10/22/18 at 18:45; Stop 10/22/18 at 18:46; Status DC Ondansetron HCl (Zofran) 4 mg PRN Q8HRS PRN IV NAUSEA/VOMITING; Start 10/22/18 at 18:45; Stop 10/23/18 at 18:44; Status DC Morphine Sulfate (Morphine Sulfate) 4 mg PRN Q1HR PRN IV PAIN Last administered on 10/22/18at 19:01; Start 10/22/18 at 18:45; Stop 10/22/18 at 20:03; Status DC Sodium Chloride 1,000 ml @ 125 mls/hr 1X ONCE IV ; Start 10/22/18 at 19:00; Stop 10/23/18 at 02:59; Status DC Potassium Chloride/Dextrose/ Sod Cl 1,000 ml @ 100 mls/hr Q10H IV Last administered on 10/24/18at 12:45; Start 10/22/18 at 21:00 Ondansetron HCl (Zofran) 4 mg PRN Q6HRS PRN IV NAUSEA/VOMITING, 1st CHOICE; Start 10/22/18 at 20:00 Prochlorperazine Edisylate (Compazine) 10 mg PRN Q6HRS PRN IV NAUSEA/VOMITING, 2nd CHOICE Last administered on 10/22/18at 20:44; Start 10/22/18 at 20:00 Morphine Sulfate (Morphine Sulfate) 2 mg PRN Q4HRS PRN IV PAIN Last administered on 10/23/18at 08:14; Start 10/22/18 at 20:00 Bisacodyl (Dulcolax Supp) 10 mg PRN DAILY PRN [place] CONSTIPATION; Start 10/22/18 at 20:00 Multivitamins 10 ml/Thiamine HCl 100 mg/Folic Acid 1 mg/Sodium Chloride 1,011.2 ml @ 100 mls/ hr DAILY IV Last administered on 10/24/18at 09:31; Start 10/22/18 at 21:00; Stop 10/26/18 at 19:07 Lorazepam (Ativan Inj) 2 mg PRN Q1HR PRN IV For CIWA 8-14 Last administered on 10/24/18at 02:57; Start 10/22/18 at 20:00 Acetaminophen/ Hydrocodone Bitart (Lortab 5/325) 1 tab PRN Q4HRS PRN PO MODERATE PAIN Last administered on 10/24/18at 11:10; Start 10/23/18 at 08:30 Active Scripts Active Reported [no home meds] Vitals/I & O Vital Sign - Last 24 Hours 10/23/18 10/23/18 10/23/18 10/23/18 14:21 15:00 19:00 20:00 Temp 97.9 99.9 97.9 99.9 Pulse 98 95 Resp 18 18 B/P (MAP) 149/85 (106) 138/78 (98) Pulse Ox 95 91 O2 Delivery Room Air Room Air Room Air Room Air 10/23/18 10/23/18 10/24/18 10/24/18 21:20 23:00 02:56 03:00 Temp 100.5 99.2 100.5 99.2 Pulse 103 102 Resp 18 18 18 18 B/P (MAP) 134/80 (98) 140/77 (98) Pulse Ox 91 96 96 93 O2 Delivery Room Air Room Air Room Air Room Air 10/24/18 10/24/18 10/24/18 10/24/18 07:00 11:00 11:10 12:10 Temp 99.6 100.8 99.6 100.8 Pulse 107 102 Resp 18 18 20 20 B/P (MAP) 130/74 (92) 145/83 (103) Pulse Ox 93 95 93 93 O2 Delivery Room Air Room Air Room Air Room Air Intake and Output 10/23/18 10/23/18 10/24/18 14:59 22:59 06:59 Intake Total 1011.2 ml 1000 ml Balance 1011.2 ml 1000 ml STAR MONTIEL MD October 24, 2018 14:07
[2018-10-24 15:00] VITALS: BP 137/78
[2018-10-24 19:00] VITALS: BP 134/77
[2018-10-24 23:00] VITALS: BP 123/74
[2018-10-25] MEDS: POTASSIUM CL 20MEQ D5-0.45NACL 1,000 ML IV SCH ×4 (01:16→21:50)
[2018-10-25 03:00] VITALS: BP 137/79
[2018-10-25 07:00] VITALS: BP 124/76
[2018-10-25] MEDS: MULTIVIT INFUSN,ADULT 4,VIT K 10 ML, THIAMINE INJ 100 MG, FOLIC ACID INJ 1 MG in IV NOR... IV SCH (08:50)
--- NOTE | 2018-10-25 09:21 | NUR ---
0900 IV fluids not scanned pervious bag still infusing
--- NOTE | 2018-10-25 10:52 | NUR ---
AMANUEL following pt for anticipated dc needs. AMANUEL phoned PAT team for assessment, eval for ETOH use and of OP tx referral. Chele will come in to see pt. Addendum: 10/25/18 at 1402 by ADRI VITAL Pt seen by Chele and is provided with AA info and resources for INpt and OP tx.
[2018-10-25 11:00] VITALS: BP 122/85
--- NOTE | 2018-10-25 14:53 | PDOC ---
PROGRESS NOTES Chief Complaint Chief Complaint Acute pancreatitis Alcohol abuse Abdominal pain secondary to the above Plan: Start clear liquids and advance as tolerated Monitor for withdrawal symptoms Reassess in the a.m. Further limitations based on the clinical course Reassurance has been provided Hopefully discharge in the a.m. History of Present Illness History of Present Illness Patient feeling better today, pain has result mild discomfort but now he is hungry. Plan of care has been explained detail I have continue with counseling regarding alcohol cessation CONCERNS were addressed to the best of my abilities Vitals Vitals Vital Signs Date Time Temp Pulse Resp B/P (MAP) Pulse Ox O2 Delivery O2 Flow Rate FiO2 10/25/18 11:00 97.6 91 18 122/85 (97) 97 Room Air 97.6 Physical Exam General: Cooperative, No acute distress, Other (sleepy from meds) Abdomen: Soft, Other (nondistended, normoactive bowel sounds, minimal tenderness on mild to moderate palpation) Extremities: No clubbing Skin: No rashes, No breakdown, No significant lesion Review of Systems Review of Systems Pertinent as per history of present illness otherwise 14 point review of system is negative Assessment and Plan Assessmemt and Plan Problems Medical Problems: (1) Hypokalemia Status: Acute (2) Pancreatitis Status: Acute Comment Review of Relevant I have reviewed the following items patrick (where applicable) has been applied. Labs Laboratory Tests Test 10/24/18 07:27 Sodium Level 138 mmol/L (136-145) Potassium Level 3.7 mmol/L (3.5-5.1) Chloride Level 102 mmol/L (98-107) Carbon Dioxide Level 25 mmol/L (21-32) Anion Gap 11 (6-14) Blood Urea Nitrogen 5 mg/dL (8-26) Creatinine 0.9 mg/dL (0.7-1.3) Estimated GFR (Cockcroft-Gault) 96.0 Glucose Level 99 mg/dL (70-99) Calcium Level 8.8 mg/dL (8.5-10.1) Lipase 1305 U/L (73-393) Microbiology 10/22/18 Urine Culture - Final, Complete 10/22/18 Urine Culture Result 1 (OFELIA) - Final, Complete Medications Current Medications Morphine Sulfate (Morphine Sulfate) 4 mg 1X ONCE IV Last administered on 10/22/18at 17:03; Start 10/22/18 at 17:15; Stop 10/22/18 at 17:16; Status DC Sodium Chloride 1,000 ml @ 1,000 mls/hr 1X ONCE IV Last administered on 10/22/18at 17:02; Start 10/22/18 at 17:00; Stop 10/22/18 at 17:59; Status DC Ondansetron HCl (Zofran) 4 mg 1X ONCE IV Last administered on 10/22/18at 17:03; Start 10/22/18 at 17:15; Stop 10/22/18 at 17:16; Status DC Multi-Ingredient Mouthwash/Gargle (Gi Cocktail) 20 ml 1X ONCE SWSW Last administered on 10/22/18at 17:36; Start 10/22/18 at 17:45; Stop 10/22/18 at 17:46; Status DC Morphine Sulfate (Morphine Sulfate) 4 mg PRN Q30MIN PRN IV PAIN; Start 10/22/18 at 18:30; Stop 10/22/18 at 18:50; Status DC Potassium Chloride (Klor-Con) 20 meq 1X ONCE PO Last administered on 10/22/18at 18:46; Start 10/22/18 at 18:45; Stop 10/22/18 at 18:46; Status DC Ondansetron HCl (Zofran) 4 mg PRN Q8HRS PRN IV NAUSEA/VOMITING; Start 10/22/18 at 18:45; Stop 10/23/18 at 18:44; Status DC Morphine Sulfate (Morphine Sulfate) 4 mg PRN Q1HR PRN IV PAIN Last administered on 10/22/18at 19:01; Start 10/22/18 at 18:45; Stop 10/22/18 at 20:03; Status DC Sodium Chloride 1,000 ml @ 125 mls/hr 1X ONCE IV ; Start 10/22/18 at 19:00; Stop 10/23/18 at 02:59; Status DC Potassium Chloride/Dextrose/ Sod Cl 1,000 ml @ 100 mls/hr Q10H IV Last administered on 10/25/18at 11:37; Start 10/22/18 at 21:00 Ondansetron HCl (Zofran) 4 mg PRN Q6HRS PRN IV NAUSEA/VOMITING, 1st CHOICE; Start 10/22/18 at 20:00 Prochlorperazine Edisylate (Compazine) 10 mg PRN Q6HRS PRN IV NAUSEA/VOMITING, 2nd CHOICE Last administered on 10/22/18at 20:44; Start 10/22/18 at 20:00 Morphine Sulfate (Morphine Sulfate) 2 mg PRN Q4HRS PRN IV PAIN Last administered on 10/23/18at 08:14; Start 10/22/18 at 20:00 Bisacodyl (Dulcolax Supp) 10 mg PRN DAILY PRN [place] CONSTIPATION; Start 10/22/18 at 20:00 Multivitamins 10 ml/Thiamine HCl 100 mg/Folic Acid 1 mg/Sodium Chloride 1,011.2 ml @ 100 mls/ hr DAILY IV Last administered on 10/25/18at 08:50; Start 10/22/18 at 21:00; Stop 10/26/18 at 19:07 Lorazepam (Ativan Inj) 2 mg PRN Q1HR PRN IV For CIWA 8-14 Last administered on 10/24/18at 02:57; Start 10/22/18 at 20:00 Acetaminophen/ Hydrocodone Bitart (Lortab 5/325) 1 tab PRN Q4HRS PRN PO MODERATE PAIN Last administered on 10/24/18 19:29; Start 10/23/18 at 08:30 Active Scripts Active Reported [no home meds] Vitals/I & O Vital Sign - Last 24 Hours 10/24/18 10/24/18 10/24/18 10/24/18 15:00 19:00 19:29 20:04 Temp 99.8 98.6 99.8 98.6 Pulse 102 100 Resp 18 18 16 B/P (MAP) 137/78 (97) 134/77 (96) Pulse Ox 96 96 O2 Delivery Room Air Room Air Room Air Room Air 10/24/18 10/24/18 10/25/18 10/25/18 20:30 23:00 03:00 07:00 Temp 98.6 98.5 99.2 98.6 98.5 99.2 Pulse 82 94 87 Resp 16 18 18 18 B/P (MAP) 123/74 (90) 137/79 (98) 124/76 (92) Pulse Ox 96 95 96 O2 Delivery Room Air Room Air Room Air Room Air 10/25/18 11:00 Temp 97.6 97.6 Pulse 91 Resp 18 B/P (MAP) 122/85 (97) Pulse Ox 97 O2 Delivery Room Air Intake and Output 10/24/18 10/24/18 10/25/18 15:00 23:00 07:00 Intake Total 0 ml 150 ml Balance 0 ml 150 ml STAR MONTIEL MD October 25, 2018 14:53
[2018-10-25 15:00] VITALS: BP 127/77
[2018-10-25 19:00] VITALS: BP 127/72
[2018-10-25 23:02] VITALS: BP 119/73
[2018-10-26 04:00] VITALS: BP 125/71
[2018-10-26 07:00] VITALS: BP 106/69
[2018-10-26] MEDS ORDERED: FOLI1TAB16 PO (09:02)
[2018-10-26] MEDS ORDERED: THIA100T57 PO (09:02)
--- NOTE | 2018-10-26 09:06 | PDOC3 ---
Discharge Summary Visit Information Date of Admission: October 23, 2018 Date of Discharge: October 26, 2018 Final Diagnosis Problems Medical Problems: (1) Hypokalemia Status: Acute (2) Pancreatitis Status: Acute Brief Hospital Course Allergies Allergies Coded Allergies Type Severity Reaction Last Updated Verified Penicillins Allergy Intermediate 10/22/18 Yes Vital Signs Vital Signs Date Time Temp Pulse Resp B/P (MAP) Pulse Ox O2 Delivery O2 Flow Rate FiO2 10/26/18 07:00 98.2 69 18 106/69 (81) 98 Room Air 98.2 Brief Hospital Course 33-year-old male who can speak and understand Arabic, drinks 12 beers every day, comes in because of NOT the first time of acute pancreatitis with a lipase of 60,000. Potassium better after hypokalemia replacement. Positive alcohol levels. CAT scan was unable to visualize the pancreas but they're able to appreciate fatty liver. He falls asleep as I explain his numbers. Some trace ascites on CAT scan but abdomen is not distended on physical exam. He's not the best historian but this is not his first time acute pancreatitis fr om alcoholism. I'm unsure if he has gone to [employer] like programs. We'll have social work give him some resources Patient was kept NPO until his symptoms improved, patient was started on a clear liquid diet once his symptoms had improved, his lipase came down significantly as well,. Discussed the results of ultrasound of the abdomen and the evidence for fatty liver. Dietary recommendations were given to the patient prior to discharge and signs and symptoms of alarm were discussed as well. Noxious effect of alcohol on his overall health was discussed as well in detail. Patient acknowledged understanding of all the instructions and is in good spirits to be discharged home I will given prescription for thiamine and folic acid as well to take with him going forward. CONCERNS were addressed the best my abilities I have encourage him to establish care with a primary care physician in the critical access hospital and recheck an ultrasound in 6 months Gen.: well-developed well-nourished in no apparent distress Head: Normal shape atraumatic Eyes: Pupils equal reactive to light and accommodation, normal conjunctivae and lids Ears: Normal shape Nose: Normal shape no trauma Mouth: No exudates of the back of throat no thrush no lesions Neck: Supple no JVD no carotid bruit or lymphadenopathy no thyromegaly Chest: Lungs clear to auscultation with good inspiratory effort no crackles rales or rhonchi Cardiovascular: S1-S2 regular rhythm no murmurs gallops or rubs Abdomen: Bowel sounds present soft nontender no hepatosplenomegaly appreciated sign Extremities: No clubbing no cyanosis no edema peripheral pulses palpated bilaterally Neurological: Alert awake oriented in person time place and situation, cranial nerves II through XII intact, no motor or sensory deficits appreciated Psych: Appropriate mood, cooperative Discharge Information Condition at Discharge: Improved Follow Up: Weeks Disposition/Orders: D/C to Home Scheduled Folic Acid (Folic Acid) 1 Mg Tablet, 1 TAB PO DAILY for supplement, #90 Ref 1 Prescribed by: STAR MONTIEL MD on 10/26/18901 Thiamine Hcl (Vitamin B-1) 100 Mg Tablet, 100 MG PO DAILY for supplement for 90 Days, #90 Prescribed by: STAR MONTIEL MD on 10/26/18901 Miscellaneous Medications [no home meds] , (Reported) Entered as Reported by: ADRIAN DANIELS on 10/22/182318 Last Action: New Order on 10/22/182318 by STAR SANTORO MD October 26, 2018 09:06
--- NOTE | 2018-10-26 10:09 | NUR ---
Discharge Note: [facility] [place] Discharge instructions and discharge home medications reviewed with Patient and a copy given. All questions have been answered and understanding verbalized. The following instructions and handouts were given: education on diet and meds, follow up with PCP within 1-2 weeks, education on hypokalemia and acute pancreatitis Discontinued lines and drains: Peripheral IV intact. Patient discharged to Home with Spouse via private vehicle
== END 2018-10-26 10:15 | disposition home or self-care (01) | DRG 438 ==
LOC: ER 16:36 → 5 NORTH 18:41
PROVIDERS: ADMIT Internal Medicine; ATTEND Internal Medicine
DX: K85.20 Alcohol induced acute pancreatitis without necrosis or infection (principal); N17.0 Acute kidney failure with tubular necrosis; R65.10 Systemic inflammatory response syndrome (SIRS) of non-infectious origin without acute organ dysfunction; K76.0 Fatty (change of) liver, not elsewhere classified; E87.6 Hypokalemia; F10.20 Alcohol dependence, uncomplicated; Y90.0 Blood alcohol level of less than 20 mg/100 ml; Z88.0 Allergy status to penicillin; Z71.41 Alcohol abuse counseling and surveillance of alcoholic
CPT/HCPCS: 36415; 76705; 80048; 80053; 81001; 82150; 83605; 83690; 84100; 84484; 85025; 87086; 93005; 96374; 96375; 96376; G0480; J0780; J2060; J2270; J2405; J7030; 99285-25